=== PATIENT | male | born 1955 | race Caucasian/White ===

== ENCOUNTER 2021-11-10 21:38 | Inpatient (IN) | payer MEDICAID ==
[~2021-11-10] VITALS: Ht 165.1 cm; Wt 70.3 kg
[2021-11-10 21:45] VITALS: BP_SYST 145
[2021-11-10 22:24] LABS: EOSINOPHILS % (AUTO) 1.7 % (0.0-4.0); HEMOGLOBIN 13.5 g/dL (14.0-18.0); MEAN CORPUSCULAR HEMOGLOBIN 32 pg (27-31); MEAN CORPUSCULAR HGB CONC 34 % (32-36); RED BLOOD CELL COUNT(AUTO) 4.29 MIL/uL (4.2-6.2)
[2021-11-10 22:29] LABS: BASOPHILS % (AUTO) 0.4 % (0.0-2.0); EOSINOPHILS # (AUTO) 0.1 K/uL (0.0-0.4); HEMATOCRIT 39.4 % (36-54); LYMPHOCYTES # (AUTO) 1.5 K/uL (1.0-5.5); LYMPHOCYTES % (AUTO) 16.1 % (20.5-51.5); MEAN CORPUSCULAR VOLUME 92 fL (79.0-98.0); MONOCYTES # (AUTO) 1.4 K/uL (0.0-1.0); MONOCYTES % (AUTO) 15.8 % (1.7-9.3); PLATELET COUNT (AUTO) 255 K/uL (130-430); RED CELL DISTRIBUTION WIDTH 13.3 % (9.0-15.0)
[2021-11-10 22:45] LABS: CALCIUM 8.3 mg/dL (8.4-11.0); CREATININE 0.94 mg/dL (0.55-1.30); POTASSIUM 4.1 mmol/L (3.5-5.1)
[2021-11-10 22:50] LABS: ALBUMIN 3.2 g/dL (3.4-4.8); TOTAL BILIRUBIN 0.6 mg/dL (0.0-1.0)
[2021-11-10] MEDS ORDERED: KETOROLAC TROMETHAMINE 30 MG VIAL IVP ONE (23:30)
[2021-11-10] MEDS ORDERED: MORPHINE 4 MG INJ. 4 MG/ML VIAL IVP ONE (23:30)
[2021-11-10] MEDS ORDERED: ONDANSETRON HCL 4 MG/2 ML VIAL IVP ONE ×2 (23:30)
[2021-11-10] MEDS ORDERED: PIPERACILLIN/TAZOBACTAM 3.375 GM/VIAL (ZOSYN) IV ONE (23:30)
[2021-11-10] MEDS ORDERED: NACL 0.9% 1,000 ML IV ONE (23:30)
[2021-11-10] MEDS ORDERED: PIPERACILLIN/TAZO 3.375 GM in NS 50 ML IV ONE (23:30)
[2021-11-11 00:49] VITALS: BP_SYST 123
[2021-11-11] MEDS ORDERED: D5/0.45 NS 1,000 ML IV SCH (03:30)
[2021-11-11] MEDS ORDERED: ONDANSETRON HCL 4 MG/2 ML VIAL IVP PRN (03:30)
[2021-11-11] MEDS ORDERED: cefTRIAXone 1 GM IVPB PREMIX 50 ML IV SCH (09:00)
[2021-12-16] MEDS ORDERED: LEVO500T90 PO (14:56)
== END 2021-11-11 14:41 | disposition left against medical advice (07) ==
LOC: SED 21:38 → SMU 11-11 03:30
PROVIDERS: ADMIT Internal Medicine; ATTEND Internal Medicine
DX: K81.0 Acute cholecystitis (principal); E44.0 Moderate protein-calorie malnutrition; F19.10 Other psychoactive substance abuse, uncomplicated; Z20.822 Contact with and (suspected) exposure to COVID-19; Z59.00 Homelessness unspecified
CPT/HCPCS: 36415; 76376; 76705; 80053; 83605; 83690; 85025; 87040; 93005; 96365; 96375; 99285; J0696; J1885; J2405; J2543

== ENCOUNTER 2021-12-10 17:24 | Emergency (ER) | payer MEDICAID ==
[~2021-12-10] VITALS: Ht 160 cm; Wt 61.2 kg
[2021-12-10 17:52] VITALS: BP_SYST 101
--- NOTE | 2021-12-10 18:50 | NUR ---
Pt in bed #8 coming from home ambulatory with steady gait. Pt is A&Ox4. C/O right abdominal pain where he had surgery last week [facility]. Pt states he does not recall waht surgery he had and states "I think I had my gallbladder removed". There is a tubing connection for drainage from the site. No s/s of infection noted. VSS. NKA. No known medical conditions. Pt rates abdominal pain 10/10 non-radiating and is constant. Bed in lowest position.
--- NOTE | 2021-12-10 19:14 | NUR ---
Report given to Chetna BARAJAS.
--- NOTE | 2021-12-10 19:15 | NUR ---
JENN MCKEON REPORT MAYURI COSME RN. PT WAITING FOR ED MD TAVAREZ
[2021-12-10] MEDS ORDERED: NACL 0.9% 1,000 ML IV ONE (19:45)
[2021-12-10] MEDS ORDERED: KETOROLAC TROMETHAMINE 30 MG VIAL IVP ONE (19:45)
[2021-12-10] MEDS ORDERED: MORPHINE 4 MG INJ. 4 MG/ML VIAL IVP ONE (19:45)
[2021-12-10] MEDS ORDERED: ONDANSETRON HCL 4 MG/2 ML VIAL IVP ONE ×2 (19:45)
[2021-12-10 21:06] LABS: BASOPHILS % (AUTO) 1.1 % (0.0-2.0); EOSINOPHILS % (AUTO) 0.3 % (0.0-4.0); HEMATOCRIT 37.2 % (36-54); HEMOGLOBIN 13.2 g/dL (14.0-18.0); LYMPHOCYTES # (AUTO) 1.7 K/uL (1.0-5.5); LYMPHOCYTES % (AUTO) 42.6 % (20.5-51.5); MEAN CORPUSCULAR HEMOGLOBIN 32 pg (27-31); MEAN CORPUSCULAR HGB CONC 35 % (32-36); MEAN CORPUSCULAR VOLUME 89 fL (79.0-98.0); MONOCYTES # (AUTO) 0.9 K/uL (0.0-1.0); MONOCYTES % (AUTO) 21.1 % (1.7-9.3); NEUTROPHILS # (AUTO) 1.4 K/uL (1.8-7.7); NEUTROPHILS % (AUTO) 34.9 % (40.0-70.0); PLATELET COUNT (AUTO) 280 K/uL (130-430); RED BLOOD CELL COUNT(AUTO) 4.17 MIL/uL (4.2-6.2); RED CELL DISTRIBUTION WIDTH 13.8 % (9.0-15.0); WHITE BLOOD COUNT (AUTO) 4.1 K/uL (4.8-10.8)
[2021-12-10 21:34] LABS: CALCIUM 8.8 mg/dL (8.4-11.0); CREATININE 0.91 mg/dL (0.55-1.30); POTASSIUM 3.4 mmol/L (3.5-5.1)
[2021-12-10 21:39] LABS: ALBUMIN 2.8 g/dL (3.4-4.8); TOTAL BILIRUBIN 0.3 mg/dL (0.0-1.0)
--- NOTE | 2021-12-10 23:06 | NUR ---
PT RESTING COFORTABLY. /O RODRIGUEZ 07/22 "FEELS BETTER" NO C/O N/V AT THIS TIME. NO C/O ABD PAIN. PT ENCOURAGED FOR UA SAMPLE.
--- NOTE | 2021-12-10 23:22 | NUR ---
UA COLLECTED AND SENT TO LAB
[2021-12-10 23:44] LABS: BILIRUBIN,URINE NEGATIVE (NEGATIVE); BLOOD, URINE NEGATIVE (NEGATIVE); COLOR,URINE YELLOW (YELLOW); GLUCOSE,URINE NEGATIVE (NEGATIVE); KETONES,URINE NEGATIVE (NEGATIVE); LEUKOCYTE ESTERASE ,URINE NEGATIVE (NEGATIVE); NITRITE, URINE NEGATIVE (NEGATIVE); PH,URINE 8.5 (5.0-8.0); PROTEIN URINE 2+ (NEGATIVE); UROBILINOGEN,URINE 0.2 (0.2-1.0)
[2021-12-10 23:45] LABS: CLARITY/URINE HAZY (CLEAR)
[2021-12-11] MEDS ORDERED: MORPHINE 4 MG INJ. 4 MG/ML VIAL IVP ONE (00:30)
--- NOTE | 2021-12-11 00:55 | NUR ---
pt feels pain in abd is 5/10 after painmeds given per bruna ferrell. continued onitoring vss
[2021-12-11] MEDS ORDERED: MAG HYDROX/AL HYDROX/SIMETH 30 ML, LIDOCAINE VISCOUS 2% 15ML (PO) 15 ML, DICYCLOMINE HC... PO ONE ×3 (01:30)
[2021-12-11] MEDS ORDERED: OMEPRAZOLE Non-Formulary 20 MG CAPSULE.DR PO ONE (01:30)
[2021-12-11 01:37] LABS: BACTERIA,URINE FEW /HPF (None Seen); RBC,URINE 0-3 /HPF (0-3); WBC,URINE 0-3 /HPF (0-3)
[2021-12-11 01:38] LABS: YEAST,URINE Moderate /HPF (None Seen)
[2021-12-11 01:40] LABS: MUCUS,URINE 1+ /LPF (None Seen)
[2021-12-11] MEDS ORDERED: ANT30 PO (03:12)
[2021-12-11] MEDS ORDERED: OMEP40CA20 PO (03:12)
[2021-12-11 03:25] VITALS: BP_SYST 120
--- NOTE | 2021-12-11 03:26 | NUR ---
PT STABLE FOR D/C TO HOME. TO [facility] AMB WITH ALL PAPEROWRK IN HAND. PT VERBALIZES UNDERSTANDING OF AFTERCARE AND RX AWAKE OVERNIGHT MONITOR. VSS NO PAIN AT THIS TIME
== END 2021-12-11 03:26 | disposition home or self-care (01) ==
LOC: SED 17:24
DX: K29.00 Acute gastritis without bleeding (principal); K91.5 Postcholecystectomy syndrome; R10.11 Right upper quadrant pain; R11.2 Nausea with vomiting, unspecified; F19.10 Other psychoactive substance abuse, uncomplicated; F17.210 Nicotine dependence, cigarettes, uncomplicated; F12.90 Cannabis use, unspecified, uncomplicated; Z79.899 Other long term (current) drug therapy
CPT/HCPCS: 99284; 74176; 96374; 76705; 96375; 96361; 80053; 81000; 83690; 85025; 87040; 87086; 36415; 76376; 83605; 96376; J1885; J2405; J2270 ×2; J7030; J2001

== ENCOUNTER 2021-12-11 20:03 | Inpatient (IN) | payer MEDICAID ==
[~2021-12-11] VITALS: Ht 165.1 cm; Wt 68.0 kg
[~2021-12-11 20:03] MED LIST: ANT30 PO; OMEP40CA20 PO
[2021-12-11] MEDS ORDERED: ONDANSETRON HCL 4 MG/2 ML VIAL IVP ONE (20:30)
[2021-12-11] MEDS ORDERED: MORPHINE 2 MG/ML INJ. SYRINGE IVP ONE (20:30)
[2021-12-11] MEDS ORDERED: NACL 0.9% 1,000 ML IV ONE (20:30)
[2021-12-11 20:47] LABS: BASOPHILS % (AUTO) 0.4 % (0.0-2.0); EOSINOPHILS % (AUTO) 0.3 % (0.0-4.0); HEMATOCRIT 34.5 % (36-54); LYMPHOCYTES # (AUTO) 1.4 K/uL (1.0-5.5); LYMPHOCYTES % (AUTO) 19.6 % (20.5-51.5); MEAN CORPUSCULAR HEMOGLOBIN 31 pg (27-31); MEAN CORPUSCULAR HGB CONC 35 % (32-36); MEAN CORPUSCULAR VOLUME 89 fL (79.0-98.0); MONOCYTES # (AUTO) 0.8 K/uL (0.0-1.0); MONOCYTES % (AUTO) 11.1 % (1.7-9.3); NEUTROPHILS % (AUTO) 68.6 % (40.0-70.0); PLATELET COUNT (AUTO) 298 K/uL (130-430); RED BLOOD CELL COUNT(AUTO) 3.87 MIL/uL (4.2-6.2); RED CELL DISTRIBUTION WIDTH 14.1 % (9.0-15.0); WHITE BLOOD COUNT (AUTO) 7.2 K/uL (4.8-10.8)
[2021-12-11] MEDS ORDERED: iohexoL 350 mgI/mL, 100 ML INFUS..BTL IV ONE (21:11)
[2021-12-11 21:13] LABS: CALCIUM 8.6 mg/dL (8.4-11.0); CREATININE 0.78 mg/dL (0.55-1.30); POTASSIUM 3.4 mmol/L (3.5-5.1)
[2021-12-11 21:19] LABS: ALBUMIN 2.5 g/dL (3.4-4.8); TOTAL BILIRUBIN 0.3 mg/dL (0.0-1.0)
[2021-12-11] MEDS ORDERED: MORPHINE 2 MG/ML INJ. SYRINGE ONE (23:42)
[2021-12-11] MEDS ORDERED: ONDANSETRON HCL 4 MG/2 ML VIAL ONE (23:42)
[2021-12-12] MEDS ORDERED: PIPERACILLIN/TAZO 3.375 GM in NS 50 ML IV ONE ×2
[2021-12-12] MEDS ORDERED: CLINDAMYCIN 900 mg/50mL D5W 50 ML IV ONE
[2021-12-12] MEDS ORDERED: PIPERACILLIN/TAZOBACTAM 3.375 GM/VIAL (ZOSYN) IV ONE (00:07)
[2021-12-12] MEDS ORDERED: iohexoL 350 mgI/mL, 100 ML INFUS..BTL IV ONE (00:09)
[2021-12-12 00:18] VITALS: BP_SYST 118
[2021-12-12 02:13] LABS: BILIRUBIN,URINE NEGATIVE (NEGATIVE); BLOOD, URINE NEGATIVE (NEGATIVE); CLARITY/URINE CLEAR (CLEAR); COLOR,URINE YELLOW (YELLOW); GLUCOSE,URINE NEGATIVE (NEGATIVE); KETONES,URINE NEGATIVE (NEGATIVE); LEUKOCYTE ESTERASE ,URINE NEGATIVE (NEGATIVE); NITRITE, URINE NEGATIVE (NEGATIVE); PH,URINE 8.5 (5.0-8.0); PROTEIN URINE 1+ (NEGATIVE); UROBILINOGEN,URINE 0.2 (0.2-1.0)
[2021-12-12] MEDS ORDERED: HYDROcodone/ACETAMIN 5-325 MG TAB (NORCO/ VICODIN) PO PRN (02:30)
[2021-12-12] MEDS ORDERED: ACETAMINOPHEN 325 MG TABLET PO PRN (02:30)
[2021-12-12] MEDS: HYDROcodone/ACETAMIN 10-325 MG TAB PO PRN ×3 (03:30→16:59)
[2021-12-12 06:22] VITALS: BP_SYST 109
[2021-12-12 08:00] VITALS: BP_SYST 98
[2021-12-12] MEDS ORDERED: LORazepam 2 MG/ML VIAL IVP PRN (08:00)
[2021-12-12] MEDS ORDERED: ONDANSETRON HCL 4 MG/2 ML VIAL IVP PRN (08:00)
[2021-12-12] MEDS ORDERED: OMEPRAZOLE Non-Formulary 20 MG CAPSULE.DR PO SCH (09:00)
[2021-12-12 09:56] LABS: BASOPHILS % (AUTO) 0.4 % (0.0-2.0); EOSINOPHILS # (AUTO) 0.1 K/uL (0.0-0.4); HEMOGLOBIN 11.6 g/dL (14.0-18.0); LYMPHOCYTES # (AUTO) 0.9 K/uL (1.0-5.5); LYMPHOCYTES % (AUTO) 16.3 % (20.5-51.5); MEAN CORPUSCULAR HEMOGLOBIN 31 pg (27-31); MEAN CORPUSCULAR HGB CONC 34 % (32-36); MEAN CORPUSCULAR VOLUME 90 fL (79.0-98.0); MONOCYTES # (AUTO) 0.6 K/uL (0.0-1.0); MONOCYTES % (AUTO) 9.6 % (1.7-9.3); NEUTROPHILS # (AUTO) 4.2 K/uL (1.8-7.7); NEUTROPHILS % (AUTO) 72.7 % (40.0-70.0); PLATELET COUNT (AUTO) 287 K/uL (130-430); RED BLOOD CELL COUNT(AUTO) 3.76 MIL/uL (4.2-6.2); RED CELL DISTRIBUTION WIDTH 13.9 % (9.0-15.0); WHITE BLOOD COUNT (AUTO) 5.8 K/uL (4.8-10.8)
[2021-12-12 10:14] LABS: CALCIUM 8.5 mg/dL (8.4-11.0); CREATININE 0.77 mg/dL (0.55-1.30); POTASSIUM 3.6 mmol/L (3.5-5.1)
[2021-12-12 12:00] VITALS: BP_SYST 104
[2021-12-12] MEDS: PIPERACILLIN/TAZO 3.375/DEX-IS 50 ML IV SCH ×3 (13:09→23:29)
[2021-12-12] MEDS: D5/0.45 NS 1,000 ML IV SCH (13:10)
[2021-12-12 16:00] VITALS: BP_SYST 90
[2021-12-12 20:00] VITALS: BP_SYST 101
[2021-12-12] MEDS: MAG-AL HYDROX/SIMETH 30 ML UDC PO PRN (21:59)
[2021-12-12] MEDS ORDERED: MAG-AL HYDROX/SIMETH 30 ML UDC ONE (22:01)
[2021-12-12] MEDS ORDERED: NALOXONE HCL 0.4 MG/ML AMP (NARCAN) IVP PRN ×2 (22:15)
[2021-12-12] MEDS ORDERED: MORPHINE 2 MG/ML INJ. SYRINGE IVP PRN ×2 (22:15)
[2021-12-13] VITALS: BP_SYST 107
[2021-12-13] MEDS: D5/0.45 NS 1,000 ML IV SCH ×2 (06:31→14:55)
[2021-12-13] MEDS: PIPERACILLIN/TAZO 3.375/DEX-IS 50 ML IV SCH ×3 (06:31→17:18)
[2021-12-13] MEDS: MAG-AL HYDROX/SIMETH 30 ML UDC PO PRN (06:39)
[2021-12-13] MEDS ORDERED: ACETAMINOPHEN 325 MG TABLET ONE (06:46)
[2021-12-13 08:00] VITALS: BP_SYST 125
[2021-12-13 08:09] LABS: BASOPHILS % (AUTO) 0.8 % (0.0-2.0); EOSINOPHILS # (AUTO) 0.2 K/uL (0.0-0.4); EOSINOPHILS % (AUTO) 4.1 % (0.0-4.0); HEMATOCRIT 33.3 % (36-54); HEMOGLOBIN 11.4 g/dL (14.0-18.0); LYMPHOCYTES % (AUTO) 19.1 % (20.5-51.5); MEAN CORPUSCULAR HEMOGLOBIN 31 pg (27-31); MEAN CORPUSCULAR HGB CONC 34 % (32-36); MEAN CORPUSCULAR VOLUME 90 fL (79.0-98.0); MONOCYTES # (AUTO) 0.6 K/uL (0.0-1.0); MONOCYTES % (AUTO) 10.7 % (1.7-9.3); NEUTROPHILS # (AUTO) 3.5 K/uL (1.8-7.7); NEUTROPHILS % (AUTO) 65.3 % (40.0-70.0); PLATELET COUNT (AUTO) 341 K/uL (130-430); RED BLOOD CELL COUNT(AUTO) 3.68 MIL/uL (4.2-6.2); RED CELL DISTRIBUTION WIDTH 13.7 % (9.0-15.0); WHITE BLOOD COUNT (AUTO) 5.4 K/uL (4.8-10.8)
[2021-12-13] MEDS: PANTOPRAZOLE SODIUM 40 MG TAB PO SCH (08:37)
[2021-12-13] MEDS ORDERED: NALOXONE HCL 0.4 MG/ML AMP (NARCAN) IVP PRN (08:45)
[2021-12-13] MEDS ORDERED: HYDROcodone/ACETAMIN 5-325 MG TAB (NORCO/ VICODIN) PO ONE (08:45)
[2021-12-13 08:48] LABS: ALBUMIN 2.2 g/dL (3.4-4.8); CALCIUM 8.4 mg/dL (8.4-11.0); CREATININE 0.85 mg/dL (0.55-1.30); POTASSIUM 3.6 mmol/L (3.5-5.1); TOTAL BILIRUBIN 0.5 mg/dL (0.0-1.0)
[2021-12-13 12:00] VITALS: BP_SYST 110
[2021-12-13 16:00] VITALS: BP_SYST 110
[2021-12-13 23:16] VITALS: BP_SYST 126
[2021-12-14] MEDS: D5/0.45 NS 1,000 ML IV SCH ×6 (00:52→01:06)
[2021-12-14] MEDS: PIPERACILLIN/TAZO 3.375/DEX-IS 50 ML IV SCH ×4 (02:58→23:35)
[2021-12-14 07:06] LABS: BASOPHILS # (AUTO) 0.1 K/uL (0.0-0.2); BASOPHILS % (AUTO) 0.7 % (0.0-2.0); EOSINOPHILS # (AUTO) 0.3 K/uL (0.0-0.4); EOSINOPHILS % (AUTO) 3.8 % (0.0-4.0); HEMATOCRIT 33.3 % (36-54); HEMOGLOBIN 11.7 g/dL (14.0-18.0); LYMPHOCYTES # (AUTO) 1.7 K/uL (1.0-5.5); LYMPHOCYTES % (AUTO) 25.3 % (20.5-51.5); MEAN CORPUSCULAR HEMOGLOBIN 31 pg (27-31); MEAN CORPUSCULAR HGB CONC 35 % (32-36); MEAN CORPUSCULAR VOLUME 90 fL (79.0-98.0); MONOCYTES # (AUTO) 0.7 K/uL (0.0-1.0); MONOCYTES % (AUTO) 11.1 % (1.7-9.3); NEUTROPHILS % (AUTO) 59.1 % (40.0-70.0); PLATELET COUNT (AUTO) 395 K/uL (130-430); RED BLOOD CELL COUNT(AUTO) 3.72 MIL/uL (4.2-6.2); RED CELL DISTRIBUTION WIDTH 13.9 % (9.0-15.0); WHITE BLOOD COUNT (AUTO) 6.7 K/uL (4.8-10.8)
[2021-12-14 07:50] LABS: C-REACTIVE PROTEIN QUANT 0.9 mg/dL (0-0.5); CALCIUM 8.4 mg/dL (8.4-11.0); CREATININE 0.7 mg/dL (0.55-1.30)
[2021-12-14 09:43] LABS: ERYTHROCYTE SEDIMENTATION RATE 43 MM/HR (0-15)
[2021-12-14] MEDS: PANTOPRAZOLE SODIUM 40 MG TAB PO SCH (10:08)
[2021-12-14 16:00] VITALS: BP_SYST 137
[2021-12-14 20:00] VITALS: BP_SYST 90
[2021-12-14] MEDS ORDERED: traZODone HCL 50 MG TABLET (DESYREL) PO PRN (23:00)
[2021-12-15] VITALS: BP_SYST 95
[2021-12-15] MEDS: PIPERACILLIN/TAZO 3.375/DEX-IS 50 ML IV SCH ×3 (05:04→18:53)
[2021-12-15] MEDS: D5/0.45 NS 1,000 ML IV SCH ×2 (05:05→16:15)
[2021-12-15] MEDS: MAG-AL HYDROX/SIMETH 30 ML UDC PO PRN (05:37)
[2021-12-15 08:11] LABS: BASOPHILS % (AUTO) 0.6 % (0.0-2.0); C-REACTIVE PROTEIN QUANT 0.3 mg/dL (0-0.5); CALCIUM 8.7 mg/dL (8.4-11.0); CREATININE 0.83 mg/dL (0.55-1.30); EOSINOPHILS # (AUTO) 0.2 K/uL (0.0-0.4); EOSINOPHILS % (AUTO) 3.2 % (0.0-4.0); HEMATOCRIT 34.2 % (36-54); HEMOGLOBIN 11.5 g/dL (14.0-18.0); LYMPHOCYTES # (AUTO) 1.8 K/uL (1.0-5.5); LYMPHOCYTES % (AUTO) 25.6 % (20.5-51.5); MEAN CORPUSCULAR HEMOGLOBIN 31 pg (27-31); MEAN CORPUSCULAR HGB CONC 34 % (32-36); MEAN CORPUSCULAR VOLUME 91 fL (79.0-98.0); MONOCYTES # (AUTO) 0.9 K/uL (0.0-1.0); MONOCYTES % (AUTO) 12.4 % (1.7-9.3); NEUTROPHILS # (AUTO) 4.2 K/uL (1.8-7.7); NEUTROPHILS % (AUTO) 58.2 % (40.0-70.0); PLATELET COUNT (AUTO) 438 K/uL (130-430); POTASSIUM 3.8 mmol/L (3.5-5.1); RED BLOOD CELL COUNT(AUTO) 3.76 MIL/uL (4.2-6.2); RED CELL DISTRIBUTION WIDTH 13.9 % (9.0-15.0); WHITE BLOOD COUNT (AUTO) 7.1 K/uL (4.8-10.8)
[2021-12-15 08:37] VITALS: BP_SYST 109
[2021-12-15 10:10] LABS: ERYTHROCYTE SEDIMENTATION RATE 53 MM/HR (0-15)
[2021-12-15 12:00] VITALS: BP_SYST 126
[2021-12-15] MEDS: PANTOPRAZOLE SODIUM 40 MG TAB PO SCH (12:25)
[2021-12-15 20:16] VITALS: BP_SYST 119
[2021-12-16] MEDS: PIPERACILLIN/TAZO 3.375/DEX-IS 50 ML IV SCH ×2 (00:01→06:50)
[2021-12-16] MEDS: D5/0.45 NS 1,000 ML IV SCH (06:50)
[2021-12-16 07:31] LABS: BASOPHILS % (AUTO) 0.3 % (0.0-2.0); EOSINOPHILS # (AUTO) 0.2 K/uL (0.0-0.4); EOSINOPHILS % (AUTO) 3.2 % (0.0-4.0); HEMATOCRIT 34.6 % (36-54); HEMOGLOBIN 11.9 g/dL (14.0-18.0); LYMPHOCYTES # (AUTO) 1.6 K/uL (1.0-5.5); LYMPHOCYTES % (AUTO) 22.4 % (20.5-51.5); MEAN CORPUSCULAR HEMOGLOBIN 32 pg (27-31); MEAN CORPUSCULAR HGB CONC 34 % (32-36); MEAN CORPUSCULAR VOLUME 93 fL (79.0-98.0); MONOCYTES # (AUTO) 1.1 K/uL (0.0-1.0); MONOCYTES % (AUTO) 14.9 % (1.7-9.3); NEUTROPHILS # (AUTO) 4.3 K/uL (1.8-7.7); NEUTROPHILS % (AUTO) 59.2 % (40.0-70.0); PLATELET COUNT (AUTO) 511 K/uL (130-430); RED BLOOD CELL COUNT(AUTO) 3.73 MIL/uL (4.2-6.2); RED CELL DISTRIBUTION WIDTH 14.1 % (9.0-15.0); WHITE BLOOD COUNT (AUTO) 7.2 K/uL (4.8-10.8)
[2021-12-16 07:37] LABS: ANION GAP 10 (5-15); C-REACTIVE PROTEIN QUANT < 0.2 mg/dL (0-0.5); CALCIUM 8.7 mg/dL (8.4-11.0); CHLORIDE 105 mmol/L (98-107); CREATININE 0.84 mg/dL (0.55-1.30); GLUCOSE 98 mg/dL (70-99); POTASSIUM 3.9 mmol/L (3.5-5.1); SODIUM SERUM 140 mmol/L (136-145); UREA NITROGEN, BLOOD 8 mg/dL (8-21)
[2021-12-16 07:54] LABS: GFR AFRICAN AMERICAN 118 mL/min (>90)
[2021-12-16] MEDS: PANTOPRAZOLE SODIUM 40 MG TAB PO SCH (08:27)
[2021-12-16 08:30] VITALS: BP_SYST 102
[2021-12-16] MEDS ORDERED: LORazepam 1 MG TABLET PO PRN (11:00)
[2021-12-16 11:58] LABS: ERYTHROCYTE SEDIMENTATION RATE 53 MM/HR (0-15)
[2021-12-16 12:45] VITALS: BP_SYST 121
[2021-12-16] MEDS ORDERED: metroNIDAZOLE 500 MG TABLET PO SCH (14:00)
[2021-12-16] MEDS ORDERED: TRAZ-250 PO (14:56)
[2021-12-16] MEDS ORDERED: LEVO-62 PO (14:56)
[2021-12-16] MEDS ORDERED: METR-154 PO (14:56)
[2021-12-16 15:09] VITALS: BP_SYST 121
[2021-12-16 16:15] VITALS: BP_SYST 107
== END 2021-12-16 18:00 | disposition home or self-care (01) | DRG 721 ==
LOC: SED 20:03 → SMU 12-12 02:23
PROVIDERS: ADMIT Preventive Medicine Preventive Medicine/Occupational Environmental Medicine; ATTEND Preventive Medicine Preventive Medicine/Occupational Environmental Medicine
PROC: CF1CYZZ Planar Nuclear Medicine Imaging of Hepatobiliary System, All using Other Radionuclide (ICD-10-PCS; principal; 2021-12-12)
PROC: BW40ZZZ Ultrasonography of Abdomen (ICD-10-PCS; 2021-12-12)
PROC: 0FPBX0Z Removal of Drainage Device from Hepatobiliary Duct, External Approach (ICD-10-PCS; 2021-12-12)
DX: T81.49XA Infection following a procedure, other surgical site, initial encounter (principal); K65.1 Peritoneal abscess; G92.9 Unspecified toxic encephalopathy; E43 Unspecified severe protein-calorie malnutrition; A41.9 Sepsis, unspecified organism; K80.10 Calculus of gallbladder with chronic cholecystitis without obstruction; B96.1 Klebsiella pneumoniae [K. pneumoniae] as the cause of diseases classified elsewhere; E87.1 Hypo-osmolality and hyponatremia; E88.09 Other disorders of plasma-protein metabolism, not elsewhere classified; E87.6 Hypokalemia; K21.9 Gastro-esophageal reflux disease without esophagitis; F15.10 Other stimulant abuse, uncomplicated; D64.9 Anemia, unspecified; Z20.822 Contact with and (suspected) exposure to COVID-19; R73.9 Hyperglycemia, unspecified; L02.211 Cutaneous abscess of abdominal wall; D75.839 Thrombocytosis, unspecified; Z59.00 Homelessness unspecified; Z90.49 Acquired absence of other specified parts of digestive tract
CPT/HCPCS: 36415; 76376; 76700-TC; 76705; 78226; 80048; 80053; 81003; 83690; 85025; 85651-TC; 86140; 87040; 87070-TC; 87081; 96374; 96375; 96376; 99285; A9537; J0696; J2001; J2270; J2405; J2543; J3490; J7060; Q9967